=== PATIENT | male | born 1975 | race Asian ===

== ENCOUNTER → 2024-05-06 | Outpatient (CLI) | payer OTHER | END | disposition home or self-care (01) | LOC: RADMN 12:32 | PROVIDERS: ATTEND Nurse Practitioner | DX: M79.601 Pain in right arm (principal) | CPT/HCPCS: 73030-TC ==

== ENCOUNTER 2025-04-01 07:12 | Day surgery (SDC) | payer OTHER ==
[~2025-04-01] VITALS: Ht 162.6 cm; Wt 70.0 kg
[~2025-04-01 07:12] MED LIST: ASPI-1450 PO; ATOR40TA71 PO; EMPA10TA3 PO; LISI10TA24 PO; METF-446 PO; SODIUM CHLORIDE 0.9% 1,000 ML ONE
[2025-04-01] MEDS: SODIUM CHLORIDE 0.9% 1,000 ML IV ONE (08:12)
[2025-04-01 08:41] LABS: GLUCOMETER DEV NAME(LOC) SDS.; GLUCOSE,POINT OF CARE 117 MG/DL (70-110)
[2025-04-01] MEDS ORDERED: PROPOFOL 1% 20 ML VIAL IVP ONE (12:00)
== END 2025-04-01 11:30 | disposition home or self-care (01) ==
LOC: SURGERY 07:12
PROVIDERS: ATTEND Internal Medicine
DX: Z12.11 Encounter for screening for malignant neoplasm of colon (principal); K64.8 Other hemorrhoids; I10 Essential (primary) hypertension; E78.5 Hyperlipidemia, unspecified; E11.9 Type 2 diabetes mellitus without complications; Z98.890 Other specified postprocedural states; Z79.899 Other long term (current) drug therapy
CPT/HCPCS: 45378; 82962; J2704; J7030

== ENCOUNTER → 2025-07-04 | Outpatient (CLI) | payer OTHER ==
[~2025-07-04] MED LIST changes: -SODIUM CHLORIDE 0.9% 1,000 ML ONE
== END | disposition home or self-care (01) ==
LOC: RADMN 09:05
PROVIDERS: ATTEND Legal Medicine
DX: M19.012 Primary osteoarthritis, left shoulder (principal); M25.512 Pain in left shoulder; M75.32 Calcific tendinitis of left shoulder
CPT/HCPCS: 73030-TC